=== PATIENT | female | born 1950 | race Caucasian/White ===

== ENCOUNTER 2021-09-29 20:16 | Emergency (ER) | payer MEDICARE ==
[~2021-09-29 20:16] MED LIST: NAPROXEN500 MG PO
[2021-09-29 22:55] LABS: BASOPHIL 0.5 % (0-2); EOSINOPHIL 0.7 % (0-7); HCT 39.6 % (37.0-47.0); HGB 12.9 g/dl (12.5-16.0); LYMPHOCYTE 26.9 % (15-48); MCH 26.5 pg (25.0-31.0); MCHC 32.6 g/dL (32.0-36.0); MCV 81.3 fL (78.0-100.0); MONOCYTE 9.5 % (0-12); MPV 9.3 fL (6.0-9.5); NRBC 0; PLT 310 K/uL (150-400); RBC 4.87 M/uL (4.20-5.40); RDW 14.8 % (11.5-14.0); WBC 8.3 K/uL (4.0-10.5)
[2021-09-29 23:25] LABS: ALBUMIN 3.9 g/dL (3.4-5.0); BILIRUBIN - TOTAL 0.8 mg/dL (0.2-1.0); BUN/CREAT RATIO (CALC) 23.5 RATIO; CREATININE 0.85 mg/dL (0.51-0.95); GLOBULIN (CALCULATION) 3.7 g/dL; POTASSIUM 3.7 mmol/L (3.5-5.1); TOTAL PROTEIN 7.6 g/dL (6.4-8.2)
[2021-09-30 00:21] LABS: BILIRUBIN NEGATIVE (NEGATIVE); BLOOD NEGATIVE Ery/uL (NEGATIVE); CLARITY CLEAR (CLEAR); COLOR YELLOW (YELLOW); GLUCOSE (U) NORMAL (NORMAL); LEUKOCYTES NEGATIVE Leu/uL (NEGATIVE); NITRITE NEGATIVE (NEGATIVE); PROTEIN NEGATIVE (NEGATIVE); UROBILINOGEN 0.2 mg/dL (0.2-1.0); pH 5.5 (5.0-9.0)
[2021-09-30] MEDS ORDERED: ONDANSETRON ODT4 MG PO (03:09)
== END 2021-09-30 03:20 | disposition home or self-care (01) ==
LOC: FER 20:16
PROVIDERS: Nurse Practitioner Family
DX: R11.2 Nausea with vomiting, unspecified (principal); R19.7 Diarrhea, unspecified; I10 Essential (primary) hypertension; E11.9 Type 2 diabetes mellitus without complications
CPT/HCPCS: 36415; 80053; 81003; 83605; 84145; 85025; 87040; J1885; J2405; J7030